=== PATIENT | male | born 1990 | race Caucasian/White ===

== ENCOUNTER 2022-03-21 09:02 | Emergency (ER) | payer BC ==
[~2022-03-21] VITALS: Ht 175.3 cm; Wt 86.2 kg
--- NOTE | 2022-03-21 09:02 | NUR ---
Patient to ER bed 6 to gown for evaluation. Side rails up. Report given to Remy DING.
[2022-03-21 09:03] VITALS: BP_SYST 129
--- NOTE | 2022-03-21 09:10 | NUR ---
ER at bedside examining patient.
[2022-03-21] MEDS ORDERED: IBUPROFEN 800 MG TABLET PO ONE ×2 (09:30→12:00)
[2022-03-21] MEDS ORDERED: HYDROcodone/ACETAMIN 10-325 MG TAB PO ONE ×2 (09:30→12:00)
--- NOTE | 2022-03-21 09:48 | NUR ---
PT BIB AWAKE AND ALERT, AO X4. NO SOB. PT COMPLAING OF ACUTE GENERALIZED WEAKNESS X5 DAYS. PT STATES PAIN STARTED IN HIS UPPERARM BILATERLY AND MIGRATED TO HIS HANDS AND LEGS, AND CHEST. PT DENIES N/V AND DIAHREA. PT HAS HX OF APPENDECTOMY, LUH STACEY DISEASE, DM1, MALIGNANTE HYERTHERIMA. PT STATES PAIN IS 5/10 WHEN LYING STILL, BUT INCREASES TO 8/10 WHEN HE MOVES. PT STATES HIS FATHER HAS THE SAME SYMPTOMS AT THE CURRENT TIME, WHO IS ALSO IN THE ER IN ANOTHER BED.
[2022-03-21 09:54] LABS: BASOPHILS % (AUTO) 0.7 % (0.0-2.0); EOSINOPHILS % (AUTO) 1.4 % (0.0-4.0); HEMATOCRIT 42.4 % (36-54); HEMOGLOBIN 14.3 g/dL (14.0-18.0); LYMPHOCYTES # (AUTO) 1.2 K/uL (1.0-5.5); LYMPHOCYTES % (AUTO) 35.5 % (20.5-51.5); MEAN CORPUSCULAR HEMOGLOBIN 28 pg (27-31); MEAN CORPUSCULAR HGB CONC 34 % (32-36); MEAN CORPUSCULAR VOLUME 83 fL (79.0-98.0); MONOCYTES # (AUTO) 0.4 K/uL (0.0-1.0); MONOCYTES % (AUTO) 11.1 % (1.7-9.3); NEUTROPHILS # (AUTO) 1.7 K/uL (1.8-7.7); NEUTROPHILS % (AUTO) 51.3 % (40.0-70.0); PLATELET COUNT (AUTO) 174 K/uL (130-430); RED BLOOD CELL COUNT(AUTO) 5.09 MIL/uL (4.2-6.2); RED CELL DISTRIBUTION WIDTH 13.3 % (9.0-15.0); WHITE BLOOD COUNT (AUTO) 3.4 K/uL (4.8-10.8)
[2022-03-21 10:19] LABS: INR 0.9 (0.80-1.20); PROTHROMBIN TIME 9.1 SECS (9.5-12.5)
[2022-03-21 10:25] LABS: CALCIUM 8.5 mg/dL (8.4-11.0); CREATININE 0.99 mg/dL (0.55-1.30)
[2022-03-21 10:40] LABS: ALBUMIN 3.4 g/dL (3.4-4.8); C-REACTIVE PROTEIN QUANT 4.8 mg/dL (0-0.5); TOTAL BILIRUBIN 0.2 mg/dL (0.0-1.0)
[2022-03-21 10:59] LABS: ERYTHROCYTE SEDIMENTATION RATE 14 MM/HR (0-15)
[2022-03-21] MEDS ORDERED: INSULIN REGULAR, HUMAN 10 UNITS/0.1 ML, 3 ML VIAL IVP ONE (12:00)
[2022-03-21] MEDS ORDERED: NACL 0.9% 1,000 ML IV ONE (12:00)
[2022-03-21] MEDS ORDERED: HYDROcodone/ACETAMIN 5-325 MG TAB (NORCO/ VICODIN) PO ONE (13:15)
[2022-03-21] MEDS ORDERED: HYDR-3917 PO (13:28)
[2022-03-21] MEDS ORDERED: IBUP-1971 PO (13:28)
[2022-03-21 18:44] VITALS: BP_SYST 129
--- NOTE | 2022-03-21 18:45 | NUR ---
Patient given written and verbal discharge instructions and verbalizes understanding. ER MD DR ALEGRE discussed with patient the results and treatment provided. Patient in stable condition. ID arm band removed. IV catheter removed intact and dressing applied, no active bleeding. Rx of NORCO AND MOTRIN given. Patient educated on pain management and to follow up with PMD. Pain Scale 6/10. Opportunity for questions provided and answered. Medication side effect fact sheet provided.
== END 2022-03-21 18:44 | disposition home or self-care (01) ==
LOC: SED 09:02
DX: M79.10 Myalgia, unspecified site (principal); R73.9 Hyperglycemia, unspecified; R50.9 Fever, unspecified; Z88.2 Allergy status to sulfonamides; Z79.899 Other long term (current) drug therapy
CPT/HCPCS: 99284; 96374; 96361; 80053; 82550; 85025; 85610; 85651; 85730; 86140; 36415; 93005; 86038; 83605; J7030; J1815